=== PATIENT | female | born 1970 | race Caucasian/White ===

== ENCOUNTER 2022-09-10 05:27 | Day surgery (SDC) | payer BC ==
[2022-09-06 15:34] VITALS: BMI 30.9
[2022-09-10 09:41] VITALS: TEMP 97.8
[2022-09-10 10:42] VITALS: BP 107/62; PULSE 88; RESP 17
== END 2022-09-10 10:49 | disposition home or self-care (01) ==
LOC: JASU-ENDO 05:27
PROVIDERS: ATTEND Internal Medicine Gastroenterology
PROC: 0DJD8ZZ Inspection of Lower Intestinal Tract, Via Natural or Artificial Opening Endoscopic (ICD-10-PCS; principal; 2022-09-10 09:00)
DX: Z12.11 Encounter for screening for malignant neoplasm of colon (principal); K59.89 Other specified functional intestinal disorders; Z83.71 Family history of colonic polyps
CPT/HCPCS: 82962

== ENCOUNTER 2023-10-18 15:28 | Observation (INO) | payer BC ==
[2023-10-18 15:40] VITALS: TEMP 98; BMI 31.8
[2023-10-18] MEDS ORDERED: DEXTROSE 50%-WATER 25 GM/50 ML DISP.SYRIN ONE (15:56)
[2023-10-18] MEDS: DEXTROSE 50%-WATER - 25 GM/50 ML VIAL IVPUSH ONE (16:09)
[2023-10-18] MEDS: SODIUM CHLORIDE 0.9% 500 ML INFUS.BAG IV ONE (16:09)
[2023-10-18 16:16] LABS: BASO % 0.2 % (0-2.0); HEMOGLOBIN 13.6 GM/dL (10.7-15.3); LYMPH % 6.6 % (8-40); MCH 27.9 pg (25.7-33.7); MCHC 33.1 g/dl (32.0-36.0); MEAN CELL VOLUME 84.2 fl (80-96); MEAN PLT VOLUME 7.8 fl (7.5-11.1); MONO % 2.6 % (3.8-10.2); NEUT % 90.6 % (42.8-82.8); PLATELET COUNT 353 10^3/uL (134-434); RBC 4.87 M/mm3 (3.60-5.2); RDW 15.3 % (11.6-15.6); WHITE BLOOD COUNT 14.1 K/mm3 (4.0-10.0)
[2023-10-18 16:22] LABS: INR 0.95 (0.83-1.09); PROTHROMBIN TIME (PATIENT) 10.7 SEC (9.7-13.0)
[2023-10-18 16:24] LABS: ACTIVATED PTT 28.2 SECONDS (25.2-36.5)
[2023-10-18 16:32] LABS: CHLORIDE 105 mmol/L (98-107); POTASSIUM 3.4 mmol/L (3.5-5.1); SODIUM 133 mmol/L (136-145)
[2023-10-18 16:34] LABS: ALBUMIN 3.9 g/dl (3.4-5.0); CALCIUM 9.9 mg/dL (8.5-10.1)
[2023-10-18 16:35] LABS: ANION GAP 4 mmol/L (4-13); BLOOD UREA NITROGEN 13.8 mg/dL (7-18); CO2 25 mmol/L (21-32)
[2023-10-18 16:37] LABS: CREATININE 0.8 mg/dL (0.55-1.3)
[2023-10-18 16:38] LABS: SGOT/AST 16 U/L (15-37); SGPT/ALT 20 U/L (13-61)
[2023-10-18 16:39] LABS: BILIRUBIN,TOTAL 0.3 mg/dL (0.2-1); TOT PROT 7.3 g/dl (6.4-8.2)
[2023-10-18 16:41] LABS: ALK PHOS 92 U/L (45-117); GLUCOSE,RANDOM 28 mg/dL (74-106)
[2023-10-18 17:40] LABS: PH,URINE 5.5 (5.0-8.0); URINE APPEARANCE CLEAR; URINE BILIRUBIN NEGATIVE (NEGATIVE); URINE COLOR YELLOW; URINE GLUCOSE (UA) 3+ (NEGATIVE); URINE KETONE NEGATIVE (NEGATIVE); URINE LEUK ESTERASE NEGATIVE (NEGATIVE); URINE NITRITE NEGATIVE (NEGATIVE); URINE PROTEIN NEGATIVE (NEGATIVE); URINE UROBILINOGEN 0.2 mg/dL (0.2-1.0)
[2023-10-18 17:46] VITALS: BP 118/71; PULSE 103; RESP 17
[2023-10-18] MEDS ORDERED: POTASSIUM CHLORIDE ORAL LIQUID 20 MEQ/15 ML ONE (17:48)
[2023-10-18] MEDS: POTASSIUM CHLORIDE ORAL LIQUID 20 MEQ/15 ML PO ONE (17:51)
[2023-10-18] MEDS ORDERED: ACETAMINOPHEN 325 MG TABLET (FP) ONE (18:47)
[2023-10-18] MEDS: ACETAMINOPHEN 325 MG TABLET (FP) PO ONE (18:51)
== END 2023-10-18 21:00 | disposition home or self-care (01) ==
LOC: JER 15:28 → JERBED 17:41
PROVIDERS: ADMIT Internal Medicine; ATTEND Internal Medicine
PROC: 3E0337Z Introduction of Electrolytic and Water Balance Substance into Peripheral Vein, Percutaneous Approach (ICD-10-PCS; principal; 2023-10-18)
DX: E11.649 Type 2 diabetes mellitus with hypoglycemia without coma (principal); E78.5 Hyperlipidemia, unspecified; I10 Essential (primary) hypertension; Z88.0 Allergy status to penicillin; Z88.8 Allergy status to other drugs, medicaments and biological substances
CPT/HCPCS: 36415; 71045-TC-FY; 80053; 81003; 82962; 84484; 85025; 85610; 85730; 86850; 86900; 86901; 87086; 93005; 93010; 99285-25; G0378